=== PATIENT | female | born 2005 | race Caucasian/White ===

== ENCOUNTER 2024-11-15 13:41 | Outpatient (CLI) | payer BC, SELFPAY ==
--- OUTSIDE RECORDS SUMMARY | 2024-11-12 15:36 | XMS_ITS | Continuity of Care Document ---
Author Organization [facility] Address Unknown Encounter [facility] Date(s): 10/13/24 - 10/13/24 [facility] Encounter Diagnosis Contact dermatitis(Discharge Diagnosis) - 10/13/24 Discharge Disposition: Home Attending Physician: ALLIE ARRIOLA Admitting Physician: ALLIE ARRIOLA Referring Physician: ALLIE ARRIOLA Allergies, Adverse Reactions, Alerts No Known Allergies Assessment and Plan Extracted from: Title:Urgent Care Note Author:ALLIE ARRIOLA Date:10/13/24 Ordered: predniSONE, See Instructions, # 30 tab, Refill(s) 0, 4 tablets (40 mg) daily for 3 days 3 tablets (30 mg) daily for 3 days 2 tablets (20 mg) daily for 3 days 1 tablet (10 mg) daily for 3 days, [id number] Allergic dermatitis I am thinking the patient has a viral illness that is precipitating this reaction. Patient started on a prednisone taper she should return if she develops fever or worsening cough patient will continue to monitor symptoms and return to the urgent care or seek emergency care if they worsen. Patient was in agreement with the above plan. All questions were answered at the time of discharge. Functional Status 10/13/24 ADLs (func) Independent Disabilities (func) None Medications prednisone 10 mg oral tablet See Instructions, # 30 tab, Refill(s) 0, 4 tablets (40 mg) daily for 3 days 3 tablets (30 mg) dailyfor 3 days 2 tablets (20 mg) daily for 3 days 1 tablet (10 mg) daily for 3 days, [id number] Start Date: 10/13/24 Status: Ordered Mental Status 10/13/24 Able to Report correct day of the week C orrect Able to Report correct month Accurate wi thin 5 days Able to Report correct year Correct Problem List Diagnosis Diagnosis Type Effective Dates Health Status Clinical Service Informant Contact dermatitis Discharge Diagnosis 10/13/24 Vital Signs Most recent to oldest [Reference Range]: 1 Blood Pressure [100-139/50-89 mmHg] 110/ 73mmHg (10/13/24 8:54 AM) Respiratory Rate [12-20 br/min] 16 br/mi n (10/13/24 8:54 AM) Temperature Oral [96-100 DegF] 97.5 DegF (10/13/24 8:54 AM) Pulse Rate [55-100 bpm] 75 bpm (10/13/24 8:54 AM) Oxygen Saturation [94-100 %] 97 % (10/13/24 8:54 AM) Do you have these Coronavirus symptoms? None (10/13/24 8:54 AM) Social History Social History Type Response Smoking Status Never (less than 100 in lifetime);Never; Tobacco Screening/Education Patient was screened for tobacco use and is a nonuser. entered on: 10/13/24 Sex Female Hospital Discharge Instructions Patient Education 10/13/2024 09:36:16 Contact Dermatitis Contact Dermatitis Contact dermatitis is a skin rash caused by something that touches the skin and makes it irritated and inflamed. Your skin may be red, swollen, dry, and may be cracked. Blisters may form and ooze. The rash will itch. Contact dermatitis often forms on the face and neck, backs of hands, forearms, genitals, and lower legs. But it can affect any area. People can get contact dermatitis from lots of sources. These include: ???Plants such as poison carmela, oak, or sumac ???Chemicals in hair dyes and rinses, soaps, solvents, waxes, fingernail syriac, and deodorants?Jewelry or watchbands made of nickel or cobalt Contact dermatitis is not passed from person to person. Talk with your healthcare provider about what may have caused the rash. A type of allergy testing called patch testing may be used to discover what you are allergic to. You will need to stay away from the source of the rash in the future to prevent it from coming back. Treatment is done to ease itching and prevent the rash from coming back. The rash should go away gege few days to a few weeks. Home care Your healthcare provider may prescribe medicine to ease swelling and itching. Follow all instructions when using these medicines. General care ???Stay away from anything that heats up your skin, such as hot showers or baths, or direct sunlight. This can make itching worse. ???Apply cold compresses to soothe your sores to help ease your symptoms. Do this for 30 minutes 3 to 4 times a day. You can make a cold compress by soaking a cloth in cold water. Squeeze out excess water. You can add colloidal oatmeal to the water to help reduce itching. For severe itching in a small area, apply an ice pack wrapped in a thin towel. Do this for 20 minutes 3 to 4 times a day. ???You can also try wet dressings. One way to do this is to wear a wet piece of clothing under a dry one. Wear a damp shirt under a dry shirt if your upper body is affected. This can relieve itching and prevent you from scratching the affected area. ???You can also help ease large areas of itching by taking a lukewarm bath with colloidal oatmeal added to the water. ???Use hydrocortisone cream for redness and irritation, unless another medicine was prescribed. Calamine lotion can also relieve mild symptoms. ???Use oral diphenhydramine to help reduce itching. You can buy this antihistamine at drugstores and grocery stores. It can make you sleepy, so use lower doses during the daytime. Don't use diphenhydramine if you have glaucoma or have trouble urinating because of an enlarged prostate. ???If a plant causes your rash, make sure to wash your skin and the clothes you were wearing when you came into contact with the plant. This is to wash away the plant oils that gave you the rash and prevent more or worse symptoms. If you have a pet that's been outdoors, its fur may also have oil from the plant. Bathe your pet with soap or shampoo. ???Stay away from the substance or object that causes your symptoms. If you can???t stay away from it, wear gloves or some other type of protection Follow-up care Follow up with your healthcare provider, or as advised. When to seek medical advice Call your healthcare provider or seek medical attention right away if any of these occur: ???Spreading of the rash to other parts of your body ???Severe swelling of your face, eyelids, mouth, throat or tongue ???Trouble urinating due to swelling in the genital area ???Fever of 100.4??F (38??C) or higher, or as advised by your provider ???Redness or swelling that gets worse ???Pain that gets worse ???Foul-smelling fluid leaking from the skin ???Yellow-brown crusts on the open blisters ?? [employer]. [address] [place], [place] [id number]. All rights reserved. This information is not intended as a substitute for professional medical care. Always follow your healthcare professional's instructions. Physician Emergency department Note * ALLIE ARRIOLA: PERFORM Event Display: ED/Urgent Care Note Authored Date: Chief Complaint Woke up yesterday morning with swelling in hands and feet, swelling in face started last night. Still has swelling with warthm in hand and feet with itching, and upper lip swelling. History of Present Illness -Provider Patient is a 19-year-old female presents today with??swelling and itching in her hands feet and upper lip.?? Started yesterday morning??and was fairly persistent throughout the day she woke up again today with??itching of her hands and feet. ??She noted that the swelling of her lips came down a small amount. ??She has been dealing with cold symptoms the past week and her roommate has been sick as well.?? Denies??any shortness of breath or chest pain but has a mild cough Problem List/Past Medical History Ongoing No qualifying data Historical No qualifying data Procedure/Surgical History No procedures found. ?? Allergies No Known Allergy Medications Medications Home prednisone 10 mg oral tablet, See Instructions, 4 tablets (40 mg) daily for 3 days 3 tablets (30 mg) daily for 3 days 2 tablets (20 mg) daily for 3 days 1 tablet (10 mg) daily for 3 days Social History Electronic Cigarettes/Vaping E-Cigarette Use: Never. Vaping Education: Patient was screened for vaping use and is a nonuser. Previous Treatment: None. Tobacco Never (less than 100 in lifetime) Tobacco Use (Smoking):. Smokeless Tobacco Use: Never. Tobacco Screening/Education Patient was screened for tobacco use and is a nonuser.. Review of Systems Negative except for HPI Physical Exams Vitals & Measurements Vital Signs and Measurements VITAL SIGNS: Systolic Blood Pressure: 110 mmHg Diastolic Blood Pressure: 73 mmHg Pulse Rate: 75 bpm Respiratory Rate: 16 br/min Temperature Oral: 97.5 DegF Oxygen Saturation: 97 % General: Alert and oriented. ??No acute distress. Ears: Translucent TMs. Light reflex visualized. No erythema or exudate.?? Nose: No exudate or erythema. Nontender sinuses.?? Throat: +2 tonsils. No erythema or exudate. Uvula midline.?? Neck: Supple, nontender, no lymphadenopathy, no thyromegaly. Respiratory: Lungs are equal and clear to auscultation, breath sounds are equal, symmetrical chest expansion. Cardiovascular: Regular rate, normal rhythm, no murmurs, no edema.? Labs 1 day Lab results for today?? No qualifying data available. Diagnostics Radiology orders for today?? No qualifying data available. ?? Radiology Results Current Encounter?? No qualifying data available. Assessment/Plan Ordered: predniSONE, See Instructions, # 30 tab, Refill(s) 0, 4 tablets (40 mg) daily for 3 days 3 tablets (30 mg) daily for 3 days 2 tablets (20 mg) daily for 3 days 1 tablet (10 mg) daily for 3 days, Pharmacy: [id number] Allergic dermatitis ?? I am thinking the patient has a viral illness that is precipitating this reaction. ??Patient started on a prednisone taper??she should return if she develops fever or worsening cough??patient will continue to monitor symptoms and return to the urgent care or seek emergency care if they worsen. ??Patient was in agreement with the above plan. ??All questions were answered at the time of discharge. Patient Care team information Care Team Personnel Name: ALLIE ARRIOLA Position: Physician - Urgent Care Member Role: Responsible Provider Address: Address: [address] [place] [address]- Name: Jeanie Lobato LPN Position: Nursing Member Role: [facility] Name: ALLIE ARRIOLA Position: Physician - Urgent Care Member Role: Referring Physician Address: Address: [address] [place] [address]- [place]
== END 2024-11-15 13:42 | disposition home or self-care (01) ==
LOC: RAD 13:44
PROVIDERS: PCP Family Medicine; Visit Provider Family Medicine
DX: Z82.49 Family history of ischemic heart disease and other diseases of the circulatory system (principal)
CPT/HCPCS: 93306

== ENCOUNTER 2025-07-11 13:29 | Outpatient (CLI) | payer BC, SELFPAY ==
[2025-07-14 11:27] LABS: Pap Test Digital Imaging Done
== END 2025-07-11 13:30 | disposition home or self-care (01) ==
LOC: NFLDREF 13:30
PROVIDERS: PCP Family Medicine; Visit Provider Physician Assistant
DX: Z12.4 Encounter for screening for malignant neoplasm of cervix (principal)
CPT/HCPCS: 87624; 87625; 88141; 88142; 88175